=== PATIENT | female | born 2000 | race Caucasian/White ===

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

== ENCOUNTER 2020-03-07 05:07 | Inpatient (IN) ==
[2020-03-07] MEDS ORDERED: LACTATED RINGERS 500 ML IV PRN (05:22)
[2020-03-07] MEDS ORDERED: BUTORPHANOL 2 MG/ML VIAL IV PRN (05:22)
[2020-03-07] MEDS ORDERED: ACETAMINOPHEN 325 MG TABLET PO PRN ×2 (05:22→12:42)
[2020-03-07] MEDS ORDERED: MEPERIDINE 50 MG/1 ML VIAL IM PRN (05:22)
[2020-03-07] MEDS ORDERED: OXYTOCIN/LR 20 UNIT/1,000 ML BAG IV SCH (05:30)
[2020-03-07 06:17] LABS: Basophils % 0.3 % (0.0-0.8); Eosinophils # 0.1 10*3/uL (0.0-0.87); Eosinophils % 1.4 % (0.00-10.9); Hematocrit 30.9 VOL% (35.7-47.0); Hemoglobin 9.2 GM/DL (12.0-16.0); Immature Granulocytes % 0.4 %; Immature Granulocytes Absolute 0.03 #; Lymphocytes % 28.3 % (21.3-54.2); Mean Corpuscular HGB Conc 29.8 GM/DL (32-36); Mean Corpuscular Volume 72.4 FL (87-102); Mean Platelet Volume 9.8 FL (9.6-12.0); Monocytes % 7.7 % (1.7-12.7); Neutrophils % 61.9 % (38.7-73.9); Platelet Count 191 T/CUMM (130-400); Red Blood Count 4.27 MC/CUMM (3.8-5.5); Red Cell Distribution Width 14.5 % (9.3-17.3)
[2020-03-07 06:48] LABS: Alanine Aminotransferase 12 U/L (13-56); Albumin 2.2 G/DL (3.4-5.0); Alkaline Phosphatase 226 U/L (45-117); Aspartate Amino Transferase 14 U/L (0-37); Bilirubin,Total < 0.39 MG/DL (0.2-1.0); Blood Urea Nitrogen 7 MG/DL (7-18); Calcium 8.5 MG/DL (8.5-10.1); Carbon Dioxide 22 MMOL/L (21-32); Estimated Glom Filtration Rate 164 ML/MIN; Glucose 88 MG/DL (74-106); Osmolality,Calculated 271.7 MOS/KG (273-304); Potassium 3.8 MMOL/L (3.5-5.1); Sodium 138 MMOL/L (136-145); Total Protein 6.7 G/DL (6.4-8.3)
[2020-03-07] MEDS: LACTATED RINGERS 1,000 ML IV SCH ×2 (07:35→08:33)
[2020-03-07] MEDS ORDERED: NALOXONE 0.4 MG/ML VIAL IV PRN (07:46)
[2020-03-07] MEDS ORDERED: FAMOTIDINE 20 MG/2 ML VIAL IV ONE (07:47)
[2020-03-07] MEDS ORDERED: CITRIC ACID/SODIUM CITRATE 30 ML UDCUP PO ONE (07:48)
[2020-03-07] MEDS ORDERED: fentaNYL 2 MCG/ROPIV 0.2% EPID 100 ML EPIDURAL SCH (08:00)
[2020-03-07] MEDS: ONDANSETRON 4 MG/2 ML VIAL IV PRN ×2 (09:20→19:47)
[2020-03-07] MEDS: ePHEDrine 50 MG/ML VIAL IV PRN ×3 (10:12→10:31)
[2020-03-07 10:23] LABS: Bacteria,Urine Occasional /HPF (Few); Bilirubin,Urine Negative (Negative); Blood, Urine Negative (Negative); Glucose,Urine (UA) Negative (Negative); Ketones,Urine Negative (Negative); Nitrite,Urine Negative (Negative); Protein,Urine Negative; RBC,Urine <1 /HPF (0-4); Urine Appearance CLEAR (Clear); Urine Color Straw (Yellow); Urine Specific Gravity 1.005 (1.001-1.035); Urine Urobilinogen < 2.0 EU/DL (0.2-1.0); WBC,Urine <1 /HPF (0-6)
[2020-03-07] MEDS ORDERED: miSOPROStoL 200 MCG TABLET ONE (11:27)
[2020-03-07] MEDS ORDERED: TRANEXAMIC ACID 1,000 MG/10 ML VIAL ONE (11:27)
[2020-03-07] MEDS ORDERED: METHYLERGONOVINE 0.2 MG/1 ML AMP ONE (11:28)
[2020-03-07] MEDS ORDERED: CARBOPROST TROMETHAMINE 250 MCG/ML AMP IM ONE (11:28)
[2020-03-07 12:18] LABS: Cord Venous Blood HCO3 24.6 MMOL/L; Cord Venous Blood PCO2 46.4 MMHG; Cord Venous Blood PO2 24.4 MMHG
[2020-03-07] MEDS ORDERED: HYDROCORTISONE 2.5% RECTAL CREAM 30 GM TUBE TOP PRN (12:42)
[2020-03-07] MEDS ORDERED: OXYTOCIN/LR 20 UNIT/1,000 ML BAG IV ONE (12:42)
[2020-03-07] MEDS ORDERED: BISACODYL 10 MG SUPP RECTAL PRN (12:42)
[2020-03-07] MEDS ORDERED: BENZOCAINE 20%/MENTHOL 0.5% SPRAY 56 GM CAN TOP PRN (12:42)
[2020-03-07] MEDS ORDERED: RHO(D) IMMUNE GLOBULIN 300 MCG SYRINGE IM ONE (12:42)
[2020-03-07] MEDS ORDERED: DIPH/TET/ACEL PERT BOOSTER VACCINE 0.5 ML VIAL IM ONE (12:42)
[2020-03-07] MEDS ORDERED: LANOLIN 50% CREAM 0.3 OZ TUBE TOP PRN (12:42)
[2020-03-07] MEDS ORDERED: MEASLES/MUMPS/RUBELLA VACCINE 0.5 ML VIAL SUBCUT ONE (12:42)
[2020-03-07] MEDS ORDERED: ONDANSETRON 4 MG/2 ML VIAL IV PRN (12:42)
[2020-03-07] MEDS ORDERED: WITCH HAZEL PADS 100/JAR TOP PRN (12:42)
[2020-03-07] MEDS ORDERED: oxyCODONE/ACETAMINOPHEN 5-325 MG TABLET PO PRN (12:42)
[2020-03-07] MEDS ORDERED: ACETAMINOPHEN/CODEINE 300-30 MG TABLET PO PRN ×2 (21:03)
[2020-03-07] MEDS: DOCUSATE SODIUM 100 MG CAPSULE PO SCH (21:11)
[2020-03-07] MEDS: IBUPROFEN 800 MG TABLET PO PRN (22:22)
[2020-03-08] MEDS: IBUPROFEN 800 MG TABLET PO PRN ×3 (05:05→21:35)
[2020-03-08 06:09] LABS: Basophils % 0.2 % (0.0-0.8); Eosinophils # 0.2 10*3/uL (0.0-0.87); Eosinophils % 1.3 % (0.00-10.9); Hematocrit 30.9 VOL% (35.7-47.0); Hemoglobin 9.3 GM/DL (12.0-16.0); Immature Granulocytes % 0.5 %; Immature Granulocytes Absolute 0.06 #; Lymphocytes # 2.4 10*3/uL (1.4-4.0); Lymphocytes % 19.5 % (21.3-54.2); Mean Corpuscular HGB Conc 30.1 GM/DL (32-36); Mean Corpuscular Volume 71.9 FL (87-102); Mean Platelet Volume 10.5 FL (9.6-12.0); Monocytes % 5.3 % (1.7-12.7); Neutrophils % 73.2 % (38.7-73.9); Platelet Count 214 T/CUMM (130-400); Red Cell Distribution Width 14.5 % (9.3-17.3); White Blood Count 12.2 T/CUMM (4-12)
[2020-03-08] MEDS: DOCUSATE SODIUM 100 MG CAPSULE PO SCH ×2 (08:54→21:28)
[2020-03-08] MEDS: METOPROLOL TARTRATE 25 MG TABLET PO SCH ×2 (08:55→21:29)
[2020-03-08] MEDS: IRON (CARBONYL)/VIT C/B12/FA TABLET PO SCH (08:55)
[2020-03-08] MEDS: oxyCODONE/ACETAMINOPHEN 5-325 MG TABLET PO PRN (10:14)
[2020-03-09] MEDS: IBUPROFEN 800 MG TABLET PO PRN ×2 (03:47→09:07)
[2020-03-09] MEDS: IRON (CARBONYL)/VIT C/B12/FA TABLET PO SCH (07:48)
[2020-03-09 08:28] VITALS: BP 111/60
[2020-03-09] MEDS: METOPROLOL TARTRATE 25 MG TABLET PO SCH (09:53)
[2020-03-09] MEDS: DOCUSATE SODIUM 100 MG CAPSULE PO SCH (09:53)
[2020-03-09] MEDS: oxyCODONE/ACETAMINOPHEN 5-325 MG TABLET PO PRN (10:07)
== END 2020-03-09 12:30 | disposition home or self-care (01) | DRG 807 ==
LOC: N.LD 05:07 → N.OB 14:52
PROVIDERS: ADMIT Specialist; ATTEND Specialist